=== PATIENT | male | born 1975 | race Caucasian/White ===

== ENCOUNTER 2024-02-14 17:01 | Emergency (ER) | payer OTHER ==
[2024-02-14 17:07] VITALS: BP 145/95; PULSE 82; RESP 18; TEMP 97.8; BMI 29.0
[2024-02-14] MEDS ORDERED: ACETAMINOPHEN 500 MG TABLET (FP) ONE (17:59)
[2024-02-14] MEDS ORDERED: IBUPROFEN 400 MG TABLET (FP) PO ONE (17:59)
[2024-02-14] MEDS ORDERED: LIDOCAINE 4% PATCH TP ONE (17:59)
[2024-02-14] MEDS: IBUPROFEN 400 MG TABLET (FP) PO ONE (18:03)
[2024-02-14] MEDS: ACETAMINOPHEN 500 MG TABLET (FP) PO ONE (18:03)
[2024-02-14] MEDS: LIDOCAINE 4% PATCH TP ONE (18:04)
== END 2024-02-14 19:55 | disposition home or self-care (01) ==
LOC: JERFT 17:01
DX: M54.6 Pain in thoracic spine (principal); M54.50 Low back pain, unspecified; V43.52XA Car driver injured in collision with other type car in traffic accident, initial encounter; Y92.410 Unspecified street and highway as the place of occurrence of the external cause
CPT/HCPCS: 72070-TC-FY; 99283-25